=== PATIENT | male | born 1930 | race Caucasian/White ===

== ENCOUNTER → 2016-07-11 | Outpatient (CLI) | payer MEDICARE, OTHER ==
--- NOTE | 2016-07-11 16:16 | RADIOLOGY REPORT PS360 ---
CHEST(2 VIEWS-NOT PORTABLE) HISTORY: Left-sided chest pain CHEST WALL PAIN ORDERING PHYSICIAN: Jin Larios MD PATIENT AGE: 85 years COMPARISON: None available FINDINGS: The cardiomediastinal silhouette and pulmonary vascularity are within normal limits. Nonspecific increased markings are present in both lower lung zones. Cannot determine chronicity as old films are not available for comparison. Upper lobes are clear. No effusions. No acute bony anomalies.. No acute bony abnormalities. IMPRESSION: Nonspecific increased markings in both lower lobes which could very well be chronic. Cannot exclude underlying atelectasis or patchy infiltrate.
--- NOTE | 2016-07-11 16:17 | RADIOLOGY REPORT PS360 ---
[id number] VIEW HISTORY: Left chest wall pain anteriorly CHEST WALL PAIN ORDERING PHYSICIAN: Jin Larios MD PATIENT AGE: 85 years COMPARISON: None FINDINGS: No acute fracture. No lytic or blastic change. IMPRESSION: Negative left ribs.
== END ==
LOC: RAD 14:17
DX: R07.89 Other chest pain (principal)